=== PATIENT | female | born 1975 | race African-American/Black ===

== ENCOUNTER → 2016-10-05 | Day surgery (SDC) | payer OTHER ==
[~2016-10-05] VITALS: Ht 157.5 cm; Wt 54.4 kg
[~2016-10-05] MED LIST: AMBIEN 10MG10 MG PO; AMLODIPINE BESYL5 M1 PO; ATIVAN0.5 MG PO; ATIVAN1 MG PO; AZATHIOPRINE 50 MG; CITALOPRAM HYDR10 MG PO; DICYCLOMINE HCL; DICYCLOMINE HCL10 M1 PO; FOLIC; FOLIC ACID 1 MG; FOLIC ACID1 M1 PO; HYDRALAZINE10 MG PO; IBUPROFEN600 M1 PO; IBUPROFEN800 M1 PO; LABETALOL HCL200 M1 PO; LEVOTHYROXINE50 MCG PO; LISINOPRIL20 M1 PO; LISINOPRIL40 M1 PO; LORAZEPAM1 M1 PO; LORAZEPAM1 MG PO; MELATIN3 MG PO; MYCOPHENOLATE MOFETIL PO; NEXIUM 40MG40 MG PO; OMEPRAZOLE20 M2 PO; PLAQUENIL200 MG PO; PREDNISONE 1 MG1 MG PO; PREDNISONE10 MG PO; PREDNISONE5 M1 PO; REGLAN10 M1 PO; SERTRALINE HCL100 MG PO; TRAMADOL50 MG PO; ULTRAM(MONOGRAP50 MG PO; VALIUM2 MG PO; VITAMIN B122500 MC2 PO; VITAMIN D31000 UNI1 PO; ZOFRAN ODT4 MG SL; ZOLOFT 100 MG100 MG PO; ZOLOFT25 MG PO; ZOLOFT50 MG PO
--- NOTE | 2016-10-05 14:08 | Operative Report ---
Operative/Inv Procedure Report Surgery Date: 10/05/16 Name of Procedure: dnc hysterocopy Pre-Operative Diagnosis: Fibroids Post-Operative Diagnosis: Same Estimated Blood Loss: 50ml to 100ml Surgeon/Violin Repairer: SEBASTIÁN MORSE MD Anesthesia: moderate sedation Operative/Procedure Note Note: Procedure note patient was taken the operating room placed prone position after adequate anesthesia patient placed in dorsolithotomy position the vagina from dorsal fashion bladder was catheterized examination under anesthesia performed a CO2 tenaculum was placed on the Intralipid cervix gentle downward traction performed patient tolerated that well at this point on cervix was dilated 29 Hegar to allow for the insertion hysteroscope.. Patient tolerated this well . The scope was removed sharp curettage endometrial lining performed sharp Pitocin and cervical lining was performed 2 specimens were sent to pathology patient tolerated all well at this point all instruments removed from the vagina patient was returned spine position awakened from anesthesia and transported recovery room awake and alert Findings: Cervix was normal in appearance
== END ==
LOC: STS 03:01
DX: D25.9 Leiomyoma of uterus, unspecified (principal); M32.9 Systemic lupus erythematosus, unspecified
CPT/HCPCS: 88305; J0131; J2250

== ENCOUNTER 2018-05-04 22:13 | Emergency (ER) | payer OTHER ==
[~2018-05-04] VITALS: Ht 157.5 cm; Wt 59.0 kg
[~2018-05-04 22:13] MED LIST changes: +CITRANATAL HAR1 EACH PO; +METHYLDOPA250 MG PO; -NEXIUM 40MG40 MG PO; +NEXIUM40 M1 PO; +PLAQUENIL200 M1 PO; -PLAQUENIL200 MG PO; +VITAMIN B-121000 MC3 PO
[2018-05-05 03:01] VITALS: BP 159/109
--- NOTE | 2018-05-05 03:27 | ED GI/GU/ABDOMINAL COMPLAINT ---
History of Present Illness General Chief Complaint: General Adult Stated Complaint: "CONSTIPATED" Source: patient Exam Limitations: no limitations Vital Signs & Intake/Output Vital Signs & Intake/Output Vital Signs Date Time Temp Pulse Resp B/P B/P Pulse O2 O2 Flow FiO2 Mean Ox Delivery Rate 05/05 0301 98.1 85 20 159/109 97 Room Air 05/05 0142 Room Air 05/04 2226 99.0 91 18 145/99 99 Room Air ED Intake and Output 05/05 0000 05/04 1200 Intake Total Output Total Balance Patient 130 lb Weight Weight Reported by Patient Measurement Method Allergies Coded Allergies: NO KNOWN ALLERGIES (08/02/16) Reconcile Medications Cholecalciferol (Vitamin D3) (Vitamin D3) 1,000 UNIT CAPSULE 1 CAP PO DAILY BONE/IMMUNE HEALTH (Reported) Cyanocobalamin (Vitamin B-12) 1,000 MCG TABLET 0.5 TAB PO DAILY SUPPLEMENT ( Reported) Esomeprazole (Nexium) 40 MG CAPSULE.DR 1 CAP PO DAILY GI (Reported) Folic Acid 1 MG TABLET 1 TAB PO DAILY VITAMIN SUPPLEMENT (Reported) Hydroxychlorquine (Plaquenil) 200 MG TABLET 1 TAB PO BID LUPUS (Reported) Levothyroxine Sodium 50 MCG TABLET 1 TAB PO DAILY HYPOTHYROID (Reported) Lorazepam 1 MG TABLET 1 TAB PO 4XDP PRN ANXIETY (Reported) Methyldopa 250 MG TABLET 1 TAB PO BID BP (Reported) Pnv59/Iron,Carb&Fum/FA/Dss/Dha (Citranatal Shandon Capsule) 27 MG IRON-1 MG-50 MG-260 MG CAPSULE 1 CAP PO DAILY (Reported) Prednisone 5 MG TABLET 1 TAB PO DAILY LUPUS (Reported) Sertraline HCl 100 MG TABLET 1.5 TAB PO DAILY MENTAL HEALTH (Reported) Triage Note: PT TO ED C/O CONSTIPATION. LAST BM "WAS A LITTLE OVER A WEEK AGO" DENIES DIARRHEA. +N/V. PMH OF SAME. TRIED FLEET ENEMA AT HOME TODAY WITH NO RELIEF. HAS BEEN TRYING COLACE AND MIRRALAX BID FOR A WEEK WITH NO RELIEF. "THEY'VE USED THOSE BIG BAGS OF FLUID HERE IN THE PAST" Triage Nurses Notes Reviewed? yes ? N Is pt currently ? No HPI: Patient presents for evaluation of worsening constipation over the past 2 weeks. Patient states that she has been using Colace and MiraLAX and managed only a small bowel movement yesterday. He was also tried a fleets enema without improvement. She is describing a diffuse cramping abdominal pain along with a feeling of abdominal bloating. Past History Travel History Traveled to [place] past 21 day No Medical History Any Pertinent Medical History? 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 No Review of Systems Review of Systems Constitutional: Reports: no symptoms. EENTM: Reports: no symptoms. Respiratory: Reports: no symptoms. Cardiovascular: Reports: no symptoms. GI: Reports: see HPI. Genitourinary: Reports: no symptoms. Musculoskeletal: Reports: no symptoms. Skin: Reports: no symptoms. Neurological/Psychological: Reports: no symptoms. Hematologic/Endocrine: Reports: no symptoms. Immunologic/Allergic: Reports: no symptoms. All Other Systems: Reviewed and Negative Physical Exam Physical Exam Gastrointestinal: SEE BELOW Comments: Gen.: Well-nourished, well-developed, no acute respiratory distress. Head: Normocephalic, atraumatic. Eyes: Normal inspection bilaterally Ears: Normal inspection bilaterally Nose: Normal inspection Throat/mouth : Moist mucosa Neck: Supple, full range of motion, no goiter Heart: Regular rate and rhythm, no murmurs rubs or gallops Lungs: Clear to auscultation bilaterally with normal air entry Chest: Nontender Back: Normal range of motion Abdomen: Soft, nontender, mild distention, normal bowel sounds Extremities: Normal range of motion grossly, equal radial pulses, no cyanosis clubbing or edema Neurologic: Cranial nerves grossly intact, speech is clear Skin: warm and dry Psychiatric: Calm, cooperative, no apparent delusions or hallucinations Rectal: Mild tenderness on exam, no palpable masses, no stool in the rectum, residue heme negative Core Measures ACS in differential dx? No Sepsis Present: No Sepsis Focused Exam Completed? No Progress Differential Diagnosis: bowel obstruction, cholecystitis, diverticulitis, gastritis, hepatitis, hernia, ischemic bowel, PUD/GERD, irritable bowel syndrome Plan of Care: Orders Procedure Date/time Status URINE 05/05 333 Complete [id number] VIEWS 05/05 327 Active Laboratory Tests 05/05/18 0335: Urine Test NEGATIVE Initial ED EKG: none Comments: 05/05/2018 4:10:11 AM patient was observed by her RN to be leaving the emergency department without notifying emergency Department staff. Departure Departure Disposition: LEFT AGAINST MEDICAL ADVICE Condition: Stable Clinical Impression Primary Impression: Abdominal pain Qualifiers: Abdominal location: generalized Qualified Code: R10.84 - Generalized abdominal pain Referrals: Patient Has No Primary Care Dr (PCP/Family) Additional Instructions: Patient left without discharge instructions Departure Forms: Customer Survey General Discharge Information
== END 2018-05-05 04:17 | disposition left against medical advice (07) ==
LOC: ERH 22:13
DX: R10.9 Unspecified abdominal pain (principal)
CPT/HCPCS: 81025